=== PATIENT | male | born 1975 | race Caucasian/White ===

== ENCOUNTER 2023-06-20 17:13 | Emergency (ER) | payer OTHER, SELFPAY ==
--- NOTE | 2023-06-20 17:15 | RT.EKG_ITS ---
APPROVED REPORT Exam: Resting ECG Reason for Exam: Chest pain Patient Location: E HR:87 bpm ECG Measurements Heart Rate 87 AXIS WV 204 P 14 QRSd 88 QRS 32 QT 358 T -9 QTc 430 Conclusion Sinus rhythm...normal P axis, V-rate 60- 99 Borderline prolonged WV interval...WV >202, V-rate 50- 90 Probable left atrial enlargement...P >50mS, <-0.10mV V1 Normal [place] No STEMI
--- NOTE | 2023-06-20 17:15 | DI.RAD_ITS ---
Exam(s) XR CHEST 2V PA LATERAL EXAM: XR CHEST 2V PA LATERAL CLINICAL HISTORY: Left sided chest pain. TECHNIQUE: 2D digital imaging was performed. COMPARISON: No exams were available for comparison FINDINGS: 2 views: Heart size is normal. The mediastinum is not widened. Lungs are clear. No infiltrates nor pleural effusions. IMPRESSION: No acute pulmonary findings. DATA REPOSITORY: RADIATION DOSE DELIVERED:
[2023-06-20 17:16] VITALS: BP 153/95; PULSE 88; RESP 16; TEMP 36.7; O2SAT 98
[2023-06-20] MEDS: Aspirin 81 MG CHEW 324 MG CH (17:25)
--- NOTE | 2023-06-20 17:25 | ED.GENADUL_ITS ---
Discharge Plan Disposition Patient Disposition: Home Condition: Stable Discharge Details Clinical Impression: Chest pain Primary Care Provider: [facility] ED Provider: Deborah Lemons Home Meds and New Rx's Prescriptions: No Action multivitamin Tablet 1 tab PO DAILY Discharge Instructions Instructions: Chest Pain (ED), Costochondritis (ED) Additional Instructions: At this time your cardiac workup shows that you are not having an acute heart attack. There is no evidence that you have a blood clot in your lung based on the lab tests. Chest x-ray shows no evidence of pneumonia or abnormality. However if you continue to have chest pain or gets worse or you have any sweaty feeling, nausea feeling or feeling like you may faint or if there is any change in the chest pain which radiates up into your jaw throat or arm please return to the ER. Follow up with primary care provider in 7 days to discuss chest CT if needed. Return to ED sooner if any worsening or concerns. Increase oral fluids. Please take Tylenol or Ibuprofen with food every 4-6 hours as needed for pain and swelling. Consider taking a baby chewable aspirin daily. Referrals: Chiquita Boyd MD [ [facility] STAFF PHYSICIAN] - 2 weeks (For chest pain follow up ) Medical Decision Making 48-year-old male presents to the ER with a chief complaint of left-sided chest pain that increases when he moves or takes a deep breath which began around 4:00 this afternoon. He denies any trauma to his chest. No significant past cardiac history or lung problems. He is a non-smoker. He endorses occasional alcohol denies any illicit drugs. He reports his pain is a 2 out of 10 upon arrival. He does not take aspirin daily. Cardiac workup ordered including serial troponins, D-dimer chest x-ray and 324 mg of baby chewable aspirin. EKG was reviewed by Dr. Grey Mckeon ER attending, see official report, no old EKG available for review, no STEMI. Serial troponins within normal limits, patient reports that he feels much better. Discussed results with him and his family. I did discuss follow-up with PCP. He does report that he does have a family history of aortic aneurysm. Discuss strict return instructions and follow-up care. He reports that he would prefer to follow-up with his PCP regarding the aneurysm screening. Patient remained hemodynamically stable, blood pressure improved prior to discharge. This text was generated using [employer] system, please disregard any oddities of phrase or misspellings. Imaging Data Radiologic Study: Imaging: X-Ray Radiologist's impression: Exam(s) XR CHEST 2V PA LATERAL EXAM: XR CHEST 2V PA LATERAL CLINICAL HISTORY: Left sided chest pain. TECHNIQUE: 2D digital imaging was performed. COMPARISON: No exams were available for comparison FINDINGS: 2 views: Heart size is normal. The mediastinum is not widened. Lungs are clear. No infiltrates nor pleural effusions. IMPRESSION: No acute pulmonary findings. Lab Data Lab results reviewed: Yes I reviewed the patient's lab results. Labs: Laboratory Tests Range/Units 06/20/23 06/20/23 17:25 19:36 WBC (4.4-10.8) 10^3/uL 8.31 RBC (4.36-5.78) 10^6/uL 5.32 Hgb (13.5-17.5) g/dL 16.5 Hct (40.0-50.0) % 46.7 MCV (80-95) fL 88 MCH (27.0-33.0) pg 31.0 MCHC (32.0-36.0) % 35.3 RDW (11.8-14.1) % 12.6 Plt Count (130-400) 10^3/uL 245 MPV (8.0-11.0) fL 9.3 Immature Gran % 0.4 Neutrophils % 59.1 Lymphocytes % 29.5 Monocytes % 9.5 Eosinophils % 1.1 Basophils % 0.4 Nucleated RBC % (0.0-0.3) % 0.0 Absolute Neutrophils (1.2-6.7) 10^3/uL 4.92 Absolute Lymphocytes (1.2-3.4) 10^3/uL 2.45 Absolute Monocytes (0.1-0.8) 10^3/uL 0.79 Absolute Eosinophils (0.0-0.7) 10^3/uL 0.09 Absolute Basophils (0.0-0.2) 10^3/uL 0.03 D-Dimer (<500) ng/mlFEU 272 Sodium (136-145) mmol/L 140 Potassium (3.5-5.1) mmol/L 3.7 Chloride (98-107) mmol/L 104 Carbon Dioxide (21.0-32.0) mmol/L 27.7 Anion Gap (3-11) mmol/L 8.3 BUN (7-18) mg/dL 18 Creatinine (0.70-1.30) mg/dL 1.0 Est GFR (CKD-EPI 2020) (mL/min/1.73m2) 91.69 Glucose (74-106) mg/dL 102 Calcium (8.5-10.1) mg/dL 9.3 Magnesium (1.8-2.4) mg/dL 2.3 Total Bilirubin (0.2-1.0) mg/dL 0.6 AST (15-37) U/L 37 ALT (16-63) U/L 78 H Alkaline Phosphatase (46-116) U/L 77 Troponin I (<or=60) ng/L < 50 < 50 Total Protein (6.4-8.2) g/dL 7.8 Albumin (3.4-5.0) g/dL 4.6 HPI General Mode of arrival: ambulatory . Date/Time Provider Initiated Documentation: 06/20/23 17:15 . Limitations to Documentation: no limitations . Information obtained by: patient, RN notes reviewed and old records reviewed . HPI Narrative: 48-year-old male presents to the ER with a chief complaint of left-sided chest pain that increases when he moves or takes a deep breath which began around 4:00 this afternoon. He denies any trauma to his chest. No significant past cardiac history or lung problems. He is a non-smoker. He endorses occasional alcohol denies any illicit drugs. He reports his pain is a 2 out of 10 upon arrival. He does not take aspirin daily. Related Data Home Medications Medication Instructions Recorded Confirmed multivitamin 1 tab PO DAILY 06/20/23 06/20/23 Allergies Allergy/AdvReac Type Severity Reaction Status Date / Time ground hornets Allergy Intermediate Swelling/Ed Uncoded 06/20/23 17:20 josie General Stated Complaint: Chest Pain CHEO: 2 Review of Systems All systems reviewed & are unremarkable except as noted in HPI and below Cardiovascular Cardiovascular: Reports as per HPI, Reports chest pain and Denies syncope Neurologic Neurologic: Denies syncope PFSH All Active Problems (Updated 06/20/23 @ 20:16 by Deborah Lemons NP) Chest pain (Acute) Surgical History H/O vasectomy Social History Smoking/Tobacco Use Status: Never Smoking risk assessment performed?: Yes Alcohol Intake: current Alcohol Intake frequency: a few times a week Alcohol type: beer Drug use: Never Substance use type: does not use Housing: house Do you feel safe at home: Yes Do you feel safe in your relationship?: Yes Exam Narrative Exam Narrative: Constitutional: Alert and oriented x3. Appears stated age. Normal body habitus. Head: Normocephalic, no trauma. Eyes: Pupils PERRL, Red reflex noted, EOM's intact. Eyelids symmetrical without lesions, discharge, or swelling. . Chest: RRR, Normal S1, S2, distal pulses intact. Resp: Lungs clear to auscultation bilaterally, no wheezes, rales, or rhonchi. Abdomen: Soft, non-distended, Normoactive bowel sounds all 4 quads. Musculoskeletal: Normal gait, 5/5 strength to all four extremities. Skin: No suspicious rashes or lesions. Capillary refill less than 2 sec. Neurologic: Cranial nerves II-XII intact. Alert and oriented x 3. Motor: No deficits noted. Hematologic/Lymphatic: No ecchymosis, no lymphadenopathy. Course Vital Signs Vital signs: Vital Signs Temperature 36.7 C 06/20/23 17:16 Pulse 88 06/20/23 17:16 Respiratory Rate 16 06/20/23 17:16 Blood Pressure 153/95 H 06/20/23 17:16 Pulse Oximetry 98 06/20/23 17:16 Temperature 36.7 C 06/20/23 17:16 Temperature Source Skin 06/20/23 17:16 Pulse 88 06/20/23 17:16 Respiratory Rate 16 06/20/23 17:16 Blood Pressure 153/95 H 06/20/23 17:16 Blood Pressure Position Sitting 06/20/23 17:16 Pulse Oximetry 98 06/20/23 17:16 Oxygen Delivery Method Room Air 06/20/23 17:16 Oxygen Flow Rate 0 06/20/23 17:16 Pain Level 2 06/20/23 17:16
[2023-06-20 17:35] LABS: Abs Immature Grans 0.03 10^3/uL (0.0-0.06); Absolute Basophil Count 0.03 10^3/uL (0.0-0.2); Absolute Eosinophil Count 0.09 10^3/uL (0.0-0.7); Absolute Lymphocyte Count 2.45 10^3/uL (1.2-3.4); Absolute Monocyte Count 0.79 10^3/uL (0.1-0.8); Absolute Neutrophil Count 4.92 10^3/uL (1.2-6.7); Basophils % 0.4; Eosinophils % 1.1; HCT 46.7 % (40.0-50.0); HGB 16.5 g/dL (13.5-17.5); Immature Grans % 0.4; Lymphocytes % 29.5; MCHC 35.3 % (32.0-36.0); MCV 88 fL (80-95); MPV 9.3 fL (8.0-11.0); Monocytes % 9.5; Neutrophils % 59.1; Platelet Count 245 10^3/uL (130-400); RBC 5.32 10^6/uL (4.36-5.78); RDW 12.6 % (11.8-14.1); RDW-SD 40.7 fL; WBC 8.31 10^3/uL (4.4-10.8)
[2023-06-20 18:09] LABS: D-Dimer 272 ng/mlFEU (<500)
[2023-06-20 18:15] LABS: ALT 78 U/L (16-63); AST 37 U/L (15-37); Albumin 4.6 g/dL (3.4-5.0); Alkaline Phosphatase 77 U/L (46-116); Anion Gap 8.3 mmol/L (3-11); BUN 18 mg/dL (7-18); Bilirubin, Total 0.6 mg/dL (0.2-1.0); CO2 27.7 mmol/L (21.0-32.0); Calcium 9.3 mg/dL (8.5-10.1); Chloride 104 mmol/L (98-107); Estimated GFR 91.69 (mL/min/1.73m2); Glucose 102 mg/dL (74-106); Magnesium 2.3 mg/dL (1.8-2.4); Potassium 3.7 mmol/L (3.5-5.1); Sodium 140 mmol/L (136-145); Total Protein 7.8 g/dL (6.4-8.2); Troponin I < 50 ng/L (<or=60)
[2023-06-20 19:29] VITALS: RESP 16
[2023-06-20 19:57] LABS: Troponin I < 50 ng/L (<or=60)
[2023-06-20 20:12] VITALS: PULSE 70; RESP 16; O2SAT 94
[2023-06-20 20:16] VITALS: BP 124/73; PULSE 64; RESP 13; O2SAT 95
[2023-06-20 20:20] VITALS: BP 123/78; PULSE 63; PULSE 69; RESP 16
[2023-06-20 20:22] VITALS: BP 123/78; PULSE 69; RESP 18; O2SAT 95
--- NOTE | 2023-06-21 05:19 | NUR.NOTE ---
Pt placed on care management referral list to seee PCP for Chest Pain to be sen within [address] Lemons
== END 2023-06-20 20:22 | disposition home or self-care (01) ==
PROVIDERS: Emergency Provider Registered Nurse Emergency
DX: R07.9 Chest pain, unspecified (principal); R94.31 Abnormal electrocardiogram [ECG] [EKG]
CPT/HCPCS: 80053; 93005; 99283; 71046; 83735; 84484; 85025; 85379; 93010

== ENCOUNTER 2024-05-27 06:09 | Emergency (ER) | payer OTHER, SELFPAY ==
[2024-05-27 06:11] VITALS: BP 125/73; PULSE 67; RESP 16; TEMP 36.6; O2SAT 99
--- NOTE | 2024-05-27 06:15 | DI.CT_ITS ---
Exam(s) CT ABDOMEN PELVIS WO EXAM: CT ABDOMEN PELVIS WO CLINICAL HISTORY: L flank pain, eval for stone. TECHNIQUE: Imaging Protocol: Axial computed tomography images with coronal and sagittal reformatted images were created and reviewed. COMPARISON: No exams were available for comparison FINDINGS: The examination is limited due to patient motion artifact. ABDOMEN: Lung Bases: Normal where visualized. Liver: There is diffuse decreased attenuation of the liver consistent with fatty infiltration. No me asurable mass. Gallbladder and biliary tract: No radiodense calculus or biliary ductal dilation. Pancreas: Normal density, no abnormal calcifications or inflammatory process. Spleen: Normal. Kidneys: Normal size, contour and axis.There is bilateral nephrolithiasis. There is a 3 mm stone in the proximal left ureter causing minimal hydronephrosis. No masses seen. Adrenal glands: No mass is seen. Lymph nodes: Within normal limits. Abdominal Aorta: Abdominal portion non-dilated. PELVIS: Bladder:Symmetric distention, no gross wall thickening. Bowel: No obstruction or bowel wall thickening. No evidence of appendicitis. Peritoneal cavity: No ascites, collection or mesenteric inflammatory response. No free air. Reproductive organs: Unremarkable as visualized. Bones: Within normal limits. Soft Tissues: There are bilateral fat containing inguinal hernias. IMPRESSION: 1. 3 mm proximal left ureteral stone causing minimal hydronephrosis. 2. Bilateral nephrolithiasis. RADIATION DOSE DELIVERED: 636.55mGy.cm Total DLP DATA REPOSITORY: All CT scans at this facility are submitted to the National Radiology Data Registry (NRDR) Dose Index Registry (DIR) with the [employer] (ACR). RADIATION OPTIMIZATION: All CT scans at this facility use at least one of these dose optimization te chniques: automated exposure control; mA and/or kV adjustment per patient size (includes targeted exa ms where dose is matched to clinical indication); or iterative reconstruction.
--- NOTE | 2024-05-27 06:25 | ED.GENADUL_ITS ---
Discharge Plan Disposition Patient Disposition: Home Condition: Good Discharge Details Clinical Impression: Urolithiasis Primary Care Provider: Salvatore Adamson ED Provider: Ramos Marie Home Meds and New Rx's Prescriptions: New ketorolac 10 mg tablet 10 mg PO TID 5 Days Qty: 15 0RF tamsulosin 0.4 mg capsule 0.4 mg PO DAILY Qty: 10 0RF No Action multivitamin Tablet 1 tab PO DAILY Discharge Instructions Instructions: Kidney Stone, Adult ED Additional Instructions: At this time you have evidence of a small kidney stone. This is likely the cause of your symptoms. This should pass within the next 12 to 48 hours, if not earlier. Please drink plenty of fluids, 10 to 12 cups/day at least. Please take Toradol as prescribed and 1000 mg of Tylenol every 6 hours as needed for pain. These are the maximum doses of these medicines. Please take the Flomax as directed. This will help in expediting the passage of your kidney stone. If your pain stops, you can stop taking the Flomax. Please strain your urine to collect the stone. This can then be analyzed by your family doctor. If you do not have resolution of your symptoms after 48 to 72 hours please follow-up closely with your family doctor or return here for reassessment. If you notice any worsening of your symptoms, or any new symptoms such as inability to urinate, vomiting, diarrhea, fever, chills, shortness of breath, chest pain, numbness, weakness, or fainting , please return immediately to the emergency department for reevaluation. Please follow up with your primary care provider as soon as possible for reassessment and reevaluation. As always, it was a pleasure participating in your medical care today. Referrals: Phoenix Doshi MD [ [facility] STAFF PHYSICIAN] - Salvatore Adamson [Primary Care Provider] - [facility] General Date/Time Provider Initiated Documentation: 05/27/24 06:17 . [facility] Narrative: This is a pleasant 49-year-old male with no significant past medical history but strong family history of kidney stones who presents today for left flank pain. Patient states that he woke up at around 4 AM with notable left flank pain that was gradual in onset then became sharp and came and went in severity. It radiated down to his left groin. He had a bowel movement with no improvement of his symptoms. Pain was severe and he had nausea and dry heaving. He came to the ER for further assessment, but on the way here the pain notably subsided. He denies any blood in his stool. He denies any fever or chills. He denies having pain like this before. No history of abdominal surgeries in the past. No other complaints at this time. Related Data Home Medications ?Medication ?Instructions ?Recorded ?Confirmed multivitamin 1 tab PO DAILY 06/20/23 05/27/24 ketorolac 10 mg tablet 10 mg PO TID 5 days #15 tabs 05/27/24 tamsulosin 0.4 mg capsule 0.4 mg PO DAILY #10 caps 05/27/24 Previous Rx's ?Medication ?Instructions ?Recorded ketorolac 10 mg tablet 10 mg PO TID 5 days #15 tabs 05/27/24 tamsulosin 0.4 mg capsule 0.4 mg PO DAILY #10 caps 05/27/24 Allergies Allergy/AdvReac Type Severity Reaction Status Date / Time ground hornets Allergy Intermediate Swelling/Ed Uncoded 05/27/24 06:23 josie General Stated Complaint: Abd Prob CHEO: 3 Review of Systems All systems reviewed & are unremarkable except as noted in HPI and below Exam Narrative Exam Narrative: 1.Const: Well-nourished, Well-developed, appearing stated age 2.Eyes: PERRL, no conjunctival injection, and symmetrical lids. 3.ENT: Atraumatic external nose and ears. Moist MM. Neck: Symmetric, trachea midline, No thyromegaly. 4.CVS: +S1/S2, Peripheral pulses 2+ and equal in all extremities. Brisk capillary refill in all extremities. 5.RESP: Unlabored respiratory effort. Clear to auscultation bilaterally. No wheezes rales or rhonchi 6.GI: Soft, nondistended, with no guarding or rebound. Minimal left lower quadrant tenderness. No flank or CVA tenderness. No genital pain. 7.MSK: Normocephalic/Atraumatic, Extremities w/o deformity or ttp No cyanosis or clubbing, Normal movement of all extremities 8.Skin: Warm, Dry. No rashes or lesions. 9.Neuro: director of valuation II-XII grossly intact. Sensation grossly intact, no focal neurologic deficits. 10.Psych: (AAO) x3. Appropriate mood and affect Course Vital Signs Vital signs: Vital Signs Temperature 36.6 C 05/27/24 06:11 Pulse 67 05/27/24 06:11 Respiratory Rate 16 05/27/24 06:11 Blood Pressure 125/73 05/27/24 06:11 Pulse Oximetry 99 05/27/24 06:11 Temperature 36.6 C 05/27/24 06:11 Pulse 67 05/27/24 06:11 Respiratory Rate 16 05/27/24 06:11 Respiratory Effort Normal 05/27/24 06:17 Blood Pressure 125/73 05/27/24 06:11 Blood Pressure Position Sitting 05/27/24 06:11 Pulse Oximetry 99 05/27/24 06:11 Oxygen Delivery Method Room Air 05/27/24 06:11 Oxygen Flow Rate 0 05/27/24 06:11 Pain Level 2 05/27/24 06:11 Medical Decision Making This is a pleasant 49-year-old male with no significant past medical history but strong family history of kidney stones who presents today for left flank pain. Patient states that he woke up at around 4 AM with notable left flank pain that was gradual in onset then became sharp and came and went in severity. It radiated down to his left groin. He had a bowel movement with no improvement of his symptoms. Pain was severe and he had nausea and dry heaving. He came to the ER for further assessment, but on the way here the pain notably subsided. He denies any blood in his stool. He denies any fever or chills. He denies having pain like this before. No history of abdominal surgeries in the past. No other complaints at this time. Physical exam demonstrates a well-appearing male, pain notably improved at this stage. He is very minimal left lower quadrant tenderness. No flank or CVA tenderness at this stage. No genital tenderness. He urinated right before he came here. Differential is highest for kidney stone, pyelonephritis unlikely with no fever. Left lower quadrant tenderness does elicit potential for diverticulitis. Symptoms inconsistent with mesenteric ischemia, no pain out of proportion. Will get a CT scan, UA, treat with Flomax and Toradol, monitor closely rehydrate and reassess. 8:[address] scan shows evidence of a left-sided kidney stone. Urinalysis shows greater than 50 RBCs with associated 10-20 WBCs. However there is no leuk esterase, negative nitrites, which would make this inconsistent with a UTI or urosepsis. Additionally the patient has no white count, bandemia or left shift whatsoever. No evidence of active infection. Symptoms at this time appear clinically consistent with a kidney stone. Patient's pain is well-controlled at this point and is feeling much better. Patient feels well and feels comfortable going home. We will send a prescription for Toradol and Flomax. Discussed red flags for which to return. I have extensively reviewed the treatment plan and discharge instructions with the patient. I have addressed all patient concerns at this time. The patient was made aware of what symptoms to monitor for that would warrant a return to the emergency department. Discussed the plan with the patient, they demonstrate verbal understanding and agreement with our assessment and plan at this time. The documentation in this chart was dictated using [employer] dictation software. Please excuse any dictation errors. FINDINGS: Lungs: Basilar scarring/atelectasis. Heart: Base of heart is unremarkable as visualized. Liver: Normal. No mass. Gallbladder and biliary ducts: Normal. No calcified stones. No ductal dilation. Pancreas: Normal. No ductal dilation. Spleen: Normal. No splenomegaly. Adrenal glands: Normal. No mass. Kidneys and ureters: Just beyond the left ureteropelvic junction there is a 4.3 calcified urinary stone. There is mild upstream ureterectasis, mild hydronephrosis. Periureteral and perinephric fat stranding is seen along the left renal collecting system. Stomach and bowel: Unremarkable. No obstruction. No mucosal thickening. Appendix: No evidence of appendicitis. Intraperitoneal space: Unremarkable. No free air. No significant fluid collection. Vasculature: Unremarkable. No abdominal aortic aneurysm. Lymph nodes: Unremarkable. No enlarged lymph nodes. Urinary bladder: Unremarkable as visualized. Reproductive: Vasectomy changes. Bones/joints: Degenerative changes of the visualized osseous structures. Soft tissues: Unremarkable. IMPRESSION: At least partially obstructing left urinary calculus just beyond the level of the ureteropelvic junction. Thank you for allowing us to participate in the care of your patient. Dictated and Authenticated by: Alex Lawson DO 05/27/2024 7:55 AM Eastern Time ([place] & [place]) Quality:SDOH Health Related Social Needs: No Data to Display PFSH All Active Problems (Updated 05/27/24 @ 07:28 by Ramos Marie DO) Urolithiasis (Acute) Surgical History H/O vasectomy Social History Smoking/Tobacco Use Status: Never Smoking risk assessment performed?: Yes Alcohol Intake: current Alcohol Intake frequency: a few times a week Alcohol type: beer Drug use: Never Substance use type: does not use Housing: house Do you feel safe at home: Yes Do you feel safe in your relationship?: Yes
[2024-05-27 06:40] LABS: Abs Immature Grans 0.06 10^3/uL (0.0-0.06); Absolute Basophil Count 0.02 10^3/uL (0.0-0.2); Absolute Eosinophil Count 0.09 10^3/uL (0.0-0.7); Absolute Lymphocyte Count 1.18 10^3/uL (1.2-3.4); Absolute Monocyte Count 0.43 10^3/uL (0.1-0.8); Absolute Neutrophil Count 3.69 10^3/uL (1.2-6.7); Basophils % 0.4 %; Eosinophils % 1.6 %; HCT 45.9 % (40.0-50.0); HGB 16.1 g/dL (13.5-17.5); Immature Grans % 1.1 %; Lymphocytes % 21.6 %; MCH 31.9 pg (27.0-33.0); MCHC 35.1 % (32.0-36.0); MCV 91 fL (80-95); MPV 9.8 fL (8.0-11.0); Monocytes % 7.9 %; Neutrophils % 67.4 %; Platelet Count 221 10^3/uL (130-400); RBC 5.05 10^6/uL (4.36-5.78); RDW 12.4 % (11.8-14.1); WBC 5.47 10^3/uL (4.4-10.8)
[2024-05-27] MEDS: Normal Saline 1,000 ML 1000 ML IV (06:41)
[2024-05-27] MEDS: Tamsulosin 0.4 MG CAPCR PO (06:41)
[2024-05-27] MEDS: Ketorolac 15 MG/ML VIAL IVP (06:41)
[2024-05-27 07:01] LABS: ALT 60 U/L (16-63); AST 34 U/L (15-37); Albumin 4.1 g/dL (3.4-5.0); Alkaline Phosphatase 84 U/L (46-116); BUN 19 mg/dL (7-18); Bilirubin, Total 0.46 mg/dL (0.2-1.0); CREATININE 1.1 mg/dL (0.70-1.30); Calcium 8.5 mg/dL (8.5-10.1); Chloride 108 mmol/L (98-107); Estimated GFR 81.28 (mL/min/1.73m2); Glucose 153 mg/dL (74-106); Potassium 4.2 mmol/L (3.5-5.1); Sodium 145 mmol/L (136-145); Total Protein 7.2 g/dL (6.4-8.2)
[2024-05-27] MEDS: ACETAMINOPHEN 1,000 MG/100 ML BAG 400 MG IVPB (07:39)
[2024-05-27 07:41] LABS: Bilirubin Negative (Negative); Blood Large (Negative); Clarity Cloudy (Clear); Glucose Negative (Negative); Ketones Negative (Negative); Leukocyte Esterase Negative (Negative); Nitrite Negative (Negative); Specific Gravity 1.025 (1.005-1.025); Urobilinogen 0.2 mg/dL (Up to 0.2); pH 5.5 (5-8)
[2024-05-27 07:42] VITALS: BP 111/80; PULSE 66; RESP 18; O2SAT 99
[2024-05-27 07:51] LABS: Bacteria Moderate HPF (Negative); C & S Indicated? Yes; Casts Negative LPF (Negative); Crystals Negative HPF (Negative); Epithelial Cells Rare HPF (Negative); Mucus Trace (Negative); RBC >50 HPF (0-2)
--- NOTE | 2024-05-27 07:56 | DI.VRAD_ITS ---
PROCEDURE INFORMATION: Exam: CT Abdomen And Pelvis Without Contrast Exam date and time: 05/27/2024 6:48 AM Age: 49 years old Clinical indication: Abdominal pain; Flank; Left; Additional info: L flank pain, eval for stone TECHNIQUE: Imaging protocol: Computed tomography of the abdomen and pelvis without contrast. COMPARISON: CR XR CHEST 2V PA LATERAL 06/20/2023 5:44 PM FINDINGS: Lungs: Basilar scarring/atelectasis. Heart: Base of heart is unremarkable as visualized. Liver: Normal. No mass. Gallbladder and biliary ducts: Normal. No calcified stones. No ductal dilation. Pancreas: Normal. No ductal dilation. Spleen: Normal. No splenomegaly. Adrenal glands: Normal. No mass. Kidneys and ureters: Just beyond the left ureteropelvic junction there is a 4.3 calcified urinary stone. There is mild upstream ureterectasis, mild hydronephrosis. Periureteral and perinephric fat stranding is seen along the left renal collecting system. Stomach and bowel: Unremarkable. No obstruction. No mucosal thickening. Appendix: No evidence of appendicitis. Intraperitoneal space: Unremarkable. No free air. No significant fluid collection. Vasculature: Unremarkable. No abdominal aortic aneurysm. Lymph nodes: Unremarkable. No enlarged lymph nodes. Urinary bladder: Unremarkable as visualized. Reproductive: Vasectomy changes. Bones/joints: Degenerative changes of the visualized osseous structures. Soft tissues: Unremarkable. IMPRESSION: At least partially obstructing left urinary calculus just beyond the level of the ureteropelvic junction. Dictated and Authenticated by: Alex Lawson MD. Ordering:COLE Beasley MD
[2024-05-27 08:08] VITALS: BP 111/41; PULSE 65; RESP 18; TEMP 36.2; O2SAT 98
[2024-05-27] MEDS: Ketorolac 10 MG TAB 30 MG PO (08:12)
--- NOTE | 2024-06-02 14:36 | NUR.NOTE ---
Accessed Pt chart to see if a referral was sent to Urology.
== END 2024-05-27 08:23 | disposition home or self-care (01) ==
PROVIDERS: Emergency Provider Student in an Organized Health Care Education/Training Program; PCP Family Medicine
DX: N20.9 Urinary calculus, unspecified (principal)
CPT/HCPCS: 80053; 96361; 96374; 96375; 99284; 74176; 81003; 81015; 85025; 87086; J0131; J1885